=== PATIENT | female | born 1965 | race Caucasian/White ===

== ENCOUNTER 2016-06-08 10:11 | Emergency (ER) | payer OTHER ==
[2016-06-08 10:32] VITALS: BP 142/84; PULSE 91; RESP 18
[2016-06-08] MEDS ORDERED: LIDOCAINE 1% W/EPI MPF 10 ML SOL INFIL ONE (12:24)
[2016-06-08] MEDS ORDERED: LIDOCAINE 1% W/EPI MPF 10 ML SOL ONE (12:26)
[2016-06-08] MEDS ORDERED: BACITRACIN 500 U/GM OIN TOP ONE ×2 (13:01→13:06)
[2016-06-08] MEDS ORDERED: TDAP VACCINE 0.5 ML SUS IM ONE ×2 (13:43→13:45)
== END 2016-06-08 13:55 | disposition home or self-care (01) | DRG 605 ==
LOC: ED 10:11
DX: S61.012A Laceration without foreign body of left thumb without damage to nail, initial encounter (principal)
CPT/HCPCS: 12001; 90471; 90715; 99284; A6402